=== PATIENT | female | born 1945 | race Caucasian/White ===

== ENCOUNTER 2022-03-10 11:41 | Inpatient (IN) | payer MEDICARE, OTHER ==
[~2022-03-10] VITALS: Ht 165.1 cm; Wt 59.0 kg
--- NOTE | 2022-03-10 12:00 | NUR ---
UA collected and sent to LAB.
--- NOTE | 2022-03-10 12:06 | NUR ---
DR Burnett at the bedside for MSE.
[2022-03-10 12:09] LABS: HEMATOCRIT 44.8 % (31.2-41.9); MEAN CORPUSCULAR HEMOGLOBIN 27.8 uug (24.7-32.8); MEAN CORPUSCULAR VOLUME 82.8 fL (75.5-95.3); PLATELET COUNT (AUTO) 868 K/uL (179-408)
[2022-03-10 12:10] LABS: *BILIRUBIN,URIN NEGATIVE (NEGATIVE); *BLOOD, URINE NEGATIVE (NEGATIVE); *CLARITY,URINE CLEAR (CLEAR); *COLOR,URINE YELLOW (YELLOW); *KETONES,URINE 1+ (NEGATIVE); *UROBILINOGEN,URINE 0.2 E.U./dl (NORMAL); LEUKOCYTE ESTERASE ,URINE TRACE (NEGATIVE); NITRITE, URINE NEGATIVE (NEGATIVE); PH,URINE 6.5 (5.0-8.0); UGLUCOSE NEGATIVE (NEGATIVE)
--- NOTE | 2022-03-10 12:15 | NUR ---
PT out of ER for Ct scan.
[2022-03-10 12:21] LABS: CREATININE 0.9 mg/dL (0.6-1.3); POTASSIUM 3.9 mmol/L (3.5-5.1)
[2022-03-10 12:27] LABS: BILIRUBIN,TOTAL 0.7 mg/dL (0.2-1.0); TOTAL PROTEIN, SERUM 7.7 g/dL (6.4-8.2)
--- NOTE | 2022-03-10 12:28 | NUR ---
Pt back from Ct, Xray in progress.
[2022-03-10 12:34] LABS: THYROID STIMULATING HORMONE 1.007 mIU/mL (0.358-3.740)
--- NOTE | 2022-03-10 14:08 | NUR ---
Pt tranfered to TELE bed, 309.
[2022-03-10 14:57] VITALS: BP 209/88
[2022-03-10 15:08] LABS: RBC,URINE NONE SEEN /HPF (0-3)
[2022-03-10 15:09] LABS: BACTERIA,URINE NONE SEEN /HPF (NONE SEEN)
[2022-03-10 15:10] LABS: SQUAMOUS EPITHELIAL CELL,UR MODERATE /HPF (NONE SEEN)
[2022-03-10 16:00] VITALS: BP 159/87
[2022-03-10] MEDS ORDERED: hydrALAZINE HCL 20 MG/1 ML VIAL IV ONE (16:00)
[2022-03-10] MEDS ORDERED: CEFTRIAXONE 1 G VIAL IM SCH (17:45)
[2022-03-10] MEDS: METOPROLOL SUCCINATE XL 25 MG TAB.SR.24H PO SCH (18:36)
--- NOTE | 2022-03-10 18:38 | NUR ---
Pt is having her dinner, A/O x2-3, alert to her name, , not place or time. Has a flight of ideas, likes to walk in her room back and forth and ask stuff for "sugar".
[2022-03-10] MEDS ORDERED: MAGNESIUM HYDROXIDE 30 ML LIQUID UDC PO PRN ×2 (18:45)
[2022-03-10] MEDS ORDERED: ACETAMINOPHEN 650 MG SUPP.RECT RC PRN ×2 (18:45)
[2022-03-10] MEDS ORDERED: MELATONIN 3 MG TABLET PO PRN (18:45)
[2022-03-10] MEDS ORDERED: ONDANSETRON 4 MG/2 ML VIAL IV PRN ×2 (18:45)
[2022-03-10 20:00] VITALS: BP 191/77
[2022-03-10] MEDS: CEFTRIAXONE 1 G in IV DEXTROSE 5% 50 ML IV SCH (20:10)
[2022-03-10] MEDS: hydrALAZINE HCL 20 MG/1 ML VIAL IV PRN (20:42)
[2022-03-10] MEDS: OLANZAPINE 5 MG TABLET PO PRN (21:22)
[2022-03-10 21:45] VITALS: BP 145/54
[2022-03-11 00:47] VITALS: BP 139/62
[2022-03-11 06:16] VITALS: BP 148/70
--- NOTE | 2022-03-11 06:18 | NUR ---
PATIENT ASLEEP IN BED. EASILY AROUSABLE. BP 148/70. ALL OTHER VSS. 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 WILL CONTINUE TO MONITOR AND ASSESS.
[2022-03-11] MEDS: ENALAPRILAT DIHYDRATE 1.25 MG/1 ML VIAL IV PRN (06:21)
[2022-03-11 06:55] LABS: HEMATOCRIT 40.8 % (31.2-41.9); MEAN CORPUSCULAR HEMOGLOBIN 27.5 uug (24.7-32.8); MEAN CORPUSCULAR VOLUME 82.4 fL (75.5-95.3); PLATELET COUNT (AUTO) 680 K/uL (179-408)
[2022-03-11 08:13] LABS: THYROID STIMULATING HORMONE 1.208 mIU/mL (0.358-3.740)
[2022-03-11 08:21] LABS: CREATININE 0.8 mg/dL (0.6-1.3); PHOSPHOROUS 4.5 mg/dL (2.5-4.9); POTASSIUM 3.9 mmol/L (3.5-5.1)
[2022-03-11] MEDS: METOPROLOL SUCCINATE XL 25 MG TAB.SR.24H PO SCH (09:47)
[2022-03-11 11:12] VITALS: BP 106/49
[2022-03-11 15:15] VITALS: BP 154/57
[2022-03-11] MEDS: hydrALAZINE HCL 20 MG/1 ML VIAL IV PRN (18:40)
--- NOTE | 2022-03-11 19:35 | NUR ---
Received patient in bed, alert oriented, no sob no chest pain, v/s stable, no complain of paint at this time, continent of bladder, cont to monitor.
[2022-03-11] MEDS: CEFTRIAXONE 1 G in IV DEXTROSE 5% 50 ML IV SCH (20:34)
[2022-03-11 20:44] VITALS: BP 136/50
[2022-03-11 23:57] VITALS: BP 163/68
[2022-03-12 04:08] VITALS: BP 158/67
[2022-03-12] MEDS: ENALAPRILAT DIHYDRATE 1.25 MG/1 ML VIAL IV PRN (05:16)
[2022-03-12] MEDS: IBUPROFEN 200 MG TABLET PO PRN ×2 (06:33→16:35)
[2022-03-12 07:18] LABS: HEMATOCRIT 43.4 % (31.2-41.9); MEAN CORPUSCULAR HEMOGLOBIN 26.7 uug (24.7-32.8); MEAN CORPUSCULAR VOLUME 82.8 fL (75.5-95.3); PLATELET COUNT (AUTO) 784 K/uL (179-408)
[2022-03-12] MEDS: OLANZAPINE 5 MG TABLET PO PRN (08:12)
[2022-03-12] MEDS: METOPROLOL SUCCINATE XL 25 MG TAB.SR.24H PO SCH (08:12)
[2022-03-12 08:16] LABS: MAGNESIUM 2.1 mg/dL (1.8-2.4); PHOSPHOROUS 3.8 mg/dL (2.5-4.9); POTASSIUM 4.2 mmol/L (3.5-5.1)
[2022-03-12 12:12] VITALS: BP 137/54
[2022-03-12 16:38] VITALS: BP 152/69
[2022-03-12 20:00] VITALS: BP 193/73
[2022-03-12] MEDS: hydrALAZINE HCL 20 MG/1 ML VIAL IV PRN (20:34)
[2022-03-12] MEDS: CEFTRIAXONE 1 G in IV DEXTROSE 5% 50 ML IV SCH (20:35)
[2022-03-12] MEDS: MELATONIN 3 MG TABLET PO PRN (22:46)
[2022-03-13 00:10] VITALS: BP 149/63
[2022-03-13 04:00] VITALS: BP 161/81
[2022-03-13 07:52] LABS: HEMATOCRIT 41.9 % (31.2-41.9); MEAN CORPUSCULAR HEMOGLOBIN 26.3 uug (24.7-32.8); MEAN CORPUSCULAR VOLUME 83.5 fL (75.5-95.3); PLATELET COUNT (AUTO) 607 K/uL (179-408)
[2022-03-13] MEDS: METOPROLOL SUCCINATE XL 25 MG TAB.SR.24H PO SCH (08:00)
[2022-03-13] MEDS: GLUCERNA SHAKE 237 ML CAN PO SCH (08:00)
[2022-03-13 08:06] LABS: CREATININE 0.8 mg/dL (0.6-1.3); POTASSIUM 4.5 mmol/L (3.5-5.1)
[2022-03-13] MEDS ORDERED: ACETAMINOPHEN 325 MG TABLET PO PRN (11:00)
[2022-03-13] MEDS: OLANZAPINE 5 MG TABLET PO PRN (11:41)
[2022-03-13 12:11] VITALS: BP 170/73
[2022-03-13] MEDS: ENALAPRILAT DIHYDRATE 1.25 MG/1 ML VIAL IV PRN (12:15)
[2022-03-13] MEDS: hydrALAZINE HCL 20 MG/1 ML VIAL IV PRN ×2 (15:50→21:28)
[2022-03-13 16:00] VITALS: BP 175/74
[2022-03-13 16:43] VITALS: BP 144/63
[2022-03-13] MEDS: CEFTRIAXONE 1 G in IV DEXTROSE 5% 50 ML IV SCH (19:49)
[2022-03-13 21:07] VITALS: BP 165/66
[2022-03-13] MEDS: MELATONIN 3 MG TABLET PO PRN (23:26)
[2022-03-14] VITALS (8 sets, daily range): BP systolic 133–197; BP diastolic 57–95
[2022-03-14] MEDS: hydrALAZINE HCL 20 MG/1 ML VIAL IV PRN ×2 (05:50→15:22)
[2022-03-14] MEDS: GLUCERNA SHAKE 237 ML CAN PO SCH (09:16)
[2022-03-14] MEDS: METOPROLOL SUCCINATE XL 25 MG TAB.SR.24H PO SCH ×2 (09:16→20:06)
[2022-03-14] MEDS: OLANZAPINE 5 MG TABLET PO PRN (12:09)
--- NOTE | 2022-03-14 19:28 | NUR ---
pt bp is 197/95 md made aware new orders received noted and carried out
[2022-03-14] MEDS: CEFTRIAXONE 1 G in IV DEXTROSE 5% 50 ML IV SCH (19:34)
[2022-03-14] MEDS ORDERED: LORAZEPAM 2 MG/1 ML VIAL IV PRN (19:45)
[2022-03-14] MEDS ORDERED: LORA2VIA6 IV (19:50)
[2022-03-14] MEDS ORDERED: CEFT1VIA15 IV (19:50)
[2022-03-14] MEDS ORDERED: LISI20TA30 PO (19:50)
[2022-03-14] MEDS ORDERED: MELA3TAB41 PO (19:50)
[2022-03-14] MEDS ORDERED: IBUP-1096 PO (19:50)
[2022-03-14] MEDS ORDERED: NUT.237L36 PO (19:50)
[2022-03-14] MEDS ORDERED: ACET325T53 PO (19:50)
[2022-03-14] MEDS ORDERED: METO-356 PO (19:50)
[2022-03-14] MEDS ORDERED: HYDR-4077 PO (19:50)
[2022-03-14] MEDS ORDERED: MAGN400O6 PO (19:50)
[2022-03-14] MEDS ORDERED: ONDA4VIA23 PO (19:50)
[2022-03-14] MEDS ORDERED: OLAN5TAB70 PO (19:50)
[2022-03-14] MEDS: LISINOPRIL 20 MG TABLET PO SCH (20:06)
--- NOTE | 2022-03-14 20:12 | NUR ---
pt is very agitated bp is very high per Md orders Ativan 1mg iv given by rn
--- NOTE | 2022-03-14 21:52 | NUR ---
pt bp is 186/87 hr [address] Morgan cancel the discharge
[2022-03-15 04:00] VITALS: BP 177/72
[2022-03-15] MEDS: hydrALAZINE HCL 20 MG/1 ML VIAL IV PRN (05:50)
[2022-03-15] MEDS: GLUCERNA SHAKE 237 ML CAN PO SCH (08:43)
[2022-03-15] MEDS: LISINOPRIL 20 MG TABLET PO SCH (08:47)
[2022-03-15] MEDS: METOPROLOL SUCCINATE XL 25 MG TAB.SR.24H PO SCH (08:50)
[2022-03-15 11:33] VITALS: BP 148/57
[2022-03-15] MEDS: IBUPROFEN 200 MG TABLET PO PRN (11:59)
--- NOTE | 2022-03-15 13:53 | NUR ---
PATIENT NOTED WITH LAPSES OF CONFUSION. SHUFFLING WHEN AMBULATING NOT PICKING UP HER FEET. PENDING LUMBER PUNCTURE. CALL FROM DR ANDERSON REQUESTING THE RADIOLOGIST TO REMOVE 60MLS FLUID DURING PROCEDURE. FAMILY AT BEDSIDE UPDATED ON PENDING PROCEDURE. CONSENT SIGNED.
[2022-03-15 15:42] VITALS: BP 126/53
[2022-03-16 20:00] VITALS: BP 122/59
== END 2022-03-15 21:30 | DRG 56 ==
LOC: ER 11:41 → TELE3 13:39 → MEDSURG3 03-14 09:20
PROVIDERS: ADMIT Internal Medicine; ATTEND Internal Medicine
PROC: 009U3ZX Drainage of Spinal Canal, Percutaneous Approach, Diagnostic (ICD-10-PCS; principal; 2022-03-15)
PROC: B01BZZZ Fluoroscopy of Spinal Cord (ICD-10-PCS; 2022-03-15)
DX: G91.2 (Idiopathic) normal pressure hydrocephalus (principal); G93.41 Metabolic encephalopathy; N39.0 Urinary tract infection, site not specified; I16.1 Hypertensive emergency; F03.94 Unspecified dementia, unspecified severity, with anxiety; R32 Unspecified urinary incontinence; E78.5 Hyperlipidemia, unspecified; M72.2 Plantar fascial fibromatosis; F32.A Depression, unspecified; Z87.442 Personal history of urinary calculi; Z86.73 Personal history of transient ischemic attack (TIA), and cerebral infarction without residual deficits; M10.9 Gout, unspecified; M19.90 Unspecified osteoarthritis, unspecified site; I10 Essential (primary) hypertension; Z90.710 Acquired absence of both cervix and uterus; Z85.42 Personal history of malignant neoplasm of other parts of uterus; Z79.899 Other long term (current) drug therapy; Z20.822 Contact with and (suspected) exposure to COVID-19
CPT/HCPCS: 36415; 62270; 70450; 71045; 83550; 83735; 84100; 84443; 84484; 85025; 85610; 85730; 89051; 93005; A4663; G0378; J0360; J0696; J2060; J3490; J7040